=== PATIENT | female | born 1960 | race Asian ===

== ENCOUNTER 2016-03-03 06:30 | Emergency (ER) | payer OTHER ==
[2016-03-03] MEDS ORDERED: IOPAMIDOL 300 (61%) 150 ML VIAL IV ONE (06:31)
[2016-03-03 07:13] LABS: SPECIFIC GRAVITY 1.025 (1.001-1.030); URINE BILIRUBIN NEGATIVE (NEGATIVE); URINE BLOOD 4+ (NEGATIVE); URINE GLUCOSE (UA) NEGATIVE (NEGATIVE); URINE LEUKOCYTE ESTERASE 1+ (NEGATIVE); URINE NITRITE NEGATIVE (NEGATIVE); URINE PROTEIN 1+ (NEGATIVE); URINE UROBILINOGEN NORMAL (0-1 mg/dl)
[2016-03-03 07:15] LABS: HCG,QUALITATIVE URINE NEGATIVE
[2016-03-03 07:19] LABS: URINE APPEARANCE HAZY; URINE BACTERIA 1+; URINE COLOR YELLOW; URINE EPITHELIAL CELLS 20-25 /hpf
[2016-03-03 07:22] LABS: BASO # 0.1 K/mm3 (0.0-0.2); BASO % 0.8 % (0.2-1.0); EOS # 0.2 (0.0-0.5); EOS % 2.1 % (0.9-2.9); HEMATOCRIT 40.2 % (37.0-47.0); HEMOGLOBIN 13.4 gm/l (12.0-16.0); IMM NEUT% 0.4 % (0-1); LYMPH # 2.9 (1.0-4.8); MEAN CELL VOLUME 85.2 fl (81.0-99.0); MEAN CORPUSCULAR HEMOGLOBIN 28.4 pg (27.0-31.0); MEAN CORPUSCULAR HGB CONC 33.3 g/dl (33.0-37.0); MEAN PLATELET VOLUME 10.3 fl (7.4-10.4); MONO # 0.5 (0.0-0.8); MONO % 6.9 % (4-12); NEUT % 51.8 % (43-75); PLATELET COUNT 323 K/mm3 (130-400); RED CELL DISTRIBUTION WIDTH 12.9 % (11.5-14.5)
[2016-03-03] MEDS ORDERED: FENTANYL 100 MCG/2 ML VIAL ONE (07:33)
[2016-03-03 07:39] LABS: ALB/GLOB RATIO 1.3 (>1.0); CALCIUM 9.2 mg/dL (8.6-10.3)
--- NOTE | 2016-03-03 08:55 | CT ---
CT ABDOMEN AND PELVIS WITH CONTRAST HISTORY: Right lower quadrant and right flank pain. TECHNIQUE: Following intravenous administration of 1 25 mL of Isovue-300., contiguous axial images were acquired from the lung bases to the ischial tuberosities. Oral contrast was not administered. COMPARISON:None. FINDINGS: LUNG BASES: No gross airspace consolidation or pleural effusion. LIVER: No focal lesion. SPLEEN: No focal lesion. PANCREAS: No focal lesion. ADRENAL GLANDS: No mass effect. KIDNEYS: Perinephric fluid and stranding on the right with delayed phase of enhancement. Moderately severe collecting system dilatation with prominent right ureteral dilatation. Obstructive 5 mm calculus seen at the right ureterovesicular junction. No residual renal calculi identified. GALLBLADDER: Present. BOWEL: Moderate fecal loading. Limited assessment of the distal colon due to decompression. No abnormal small bowel dilatation. APPENDIX: Normal gas-filled appendix. PELVIC ORGANS: No gross mass effect. FREE FLUID: No gross free fluid identified. ABDOMINOPELVIC LYMPH NODES: No abnormally enlarged lymph nodes identified. ABDOMINAL AORTA: Minimal atherosclerotic calcifications. OSSEOUS STRUCTURES: No grossly destructive lesions. IMPRESSION: 1. Obstructive 5 mm calculus at the right ureterovesicular junction with no residual renal calculus burden identified. 2. Nonobstructive, noninflammatory appearance of bowel. Normal appearance of the appendix. Findings discussed with Dr. Reynolds of the Emergency Medicine clinical service on 03/03/2016 at 0851 hours.
[2016-03-03] MEDS ORDERED: ONDANSETRON 4 MG/2ML 2 ML VIAL ONE (09:09)
== END 2016-03-03 09:30 | disposition home or self-care (01) ==
LOC: ED 06:30
DX: N20.0 Calculus of kidney (principal); I10 Essential (primary) hypertension; Z79.899 Other long term (current) drug therapy